=== PATIENT | male | born 1985 | race Caucasian/White ===

== ENCOUNTER 2018-02-08 14:34 | Emergency (ER) | payer SELFPAY ==
[2018-02-08] MEDS ORDERED: KETOROLAC 30 MG/ML VIAL (J1885) IV (15:30)
[2018-02-08] MEDS ORDERED: KETOROLAC 30 MG/ML VIAL (J1885) As Ordered (15:58)
[2018-02-08] MEDS: KETOROLAC 60 MG/2 ML VIAL (J1885) IM (16:07)
[2018-02-08] MEDS: PERCOCET 5MG/325MG TAB PO (16:07)
[2018-02-08 16:35] LABS: AMORPHOUS SEDIMENT MODERATE (NEGATIVE); APPEARANCE, URINE TURBID (CLEAR); BACTERIA, URINE AUTO NEGATIVE (NEGATIVE); BILIRUBIN, URINE AUTO NEGATIVE (NEGATIVE); BLOOD, URINE BLOOD NEGATIVE (NEGATIVE); COLOR, URINE YELLOW (YELLOW); GLUCOSE, URINE (UA) AUTO NEGATIVE (NEGATIVE); KETONE, URINE AUTO NEGATIVE (NEGATIVE); LEUKOCYTE ESTERASE, URINE AUTO NEGATIVE (NEGATIVE); NITRITE, URINE AUTO NEGATIVE (NEGATIVE); PROTEIN, URINE AUTO NEGATIVE (NEGATIVE); RBC, URINE AUTO 2 /HPF (0-3); SPECIFIC GRAVITY URINE AUTO 1.019 (1.002-1.035); SQUAMOUS EPITHELIAL CELL UR AU 0 /HPF (0-6); UROBILINOGEN, URINE AUTO 0.2 mg/dL (0.0-2.0); WBC, URINE AUTO 0 /HPF (0-3)
[2018-02-08 16:45] LABS: ANION GAP 5 MEQ/L (8-16); BLOOD UREA NITROGEN 20 MG/DL (7-18); CALCIUM LEVEL 8.8 MG/DL (8.5-10.1); CARBON DIOXIDE LEVEL 27 MEQ/L (21-32); CHLORIDE LEVEL 111 MEQ/L (98-107); CREATININE FOR GFR 0.91 MG/DL (0.70-1.30); GLOMERULAR FILTRATION RATE > 60.0 (>60); GLUCOSE, FASTING 104 MG/DL (70-100); POTASSIUM SERUM 3.8 MEQ/L (3.5-5.1); SODIUM LEVEL 143 MEQ/L (136-145)
== END 2018-02-08 17:50 | disposition home or self-care (01) ==
LOC: M ED 14:34
DX: M54.9 Dorsalgia, unspecified (principal); Z87.442 Personal history of urinary calculi
CPT/HCPCS: J1885

== ENCOUNTER 2025-07-17 17:51 | Emergency (ER) | payer SELFPAY ==
[~2025-07-17] VITALS: Ht 182.9 cm; Wt 113.4 kg
[~2025-07-17 17:51] MED LIST: CYCL-707 PO; NAPR-837 PO
[2025-07-17] MEDS: ONDANSETRON 4MG 2ML VIAL IV ONE (18:47)
[2025-07-17] MEDS: MORPHINE 2 MG/ML 1 ML VIAL IV PRN (18:51)
[2025-07-17 19:06] LABS: BASO # 0.1 10^3/uL (0.0-0.2); BASO % 0.4 % (0.0-1.0); EOS # 0.0 10^3/uL (0.0-0.5); EOS % 0.1 % (0.0-3.0); LYMPH # 1.2 10^3/uL (1.5-5.0); LYMPH % 5.6 % (24.0-44.0); MONO # 1.1 10^3/uL (0.0-0.8); MONO % 5.1 % (2.0-8.0); NEUTROPHILS # 19.2 10^3/uL (1.5-8.5); NEUTROPHILS % 88.2 % (36.0-66.0); PLATELET COUNT, AUTOMATED 309 10^3/uL (150-450)
[2025-07-17 19:25] LABS: ALT/SGPT 21 U/L (7.0-40); AST/SGOT 26 U/L (<34); CALCIUM LEVEL 10.2 MG/DL (8.5-10.1); CARBON DIOXIDE LEVEL 26 MMOL/L (20-31); CHLORIDE LEVEL 104 MMOL/L (98-107); CREATININE FOR GFR 1.04 MG/DL (0.70-1.30); GLOMERULAR FILTRATION RATE > 90.0 (>60); POTASSIUM SERUM 4.0 MMOL/L (3.5-5.1); SODIUM LEVEL 142 MMOL/L (136-145)
[2025-07-17] MEDS ORDERED: MORPHINE 4 MG/ML 1 ML VIAL IV PRN (19:45)
[2025-07-17] MEDS ORDERED: TAMS-18 PO (20:43)
[2025-07-17] MEDS ORDERED: HYDR-3713 PO (20:43)
[2025-07-17 21:04] LABS: KETONE, URINE AUTO RFX TRACE mg/dL (NEGATIVE); LEUKOCYTE ESTERASE UR AUTO RFX NEGATIVE (NEGATIVE); MUCUS, URINE RFX MODERATE (NEGATIVE); NITRITE, URINE AUTO RFX NEGATIVE (NEGATIVE); RBC, URINE AUTO RFX 29 /HPF (0-3); SQUAM EPITHELIAL CELL UR AURFX 1 /HPF (0-6); WBC, URINE AUTO RFX 5 /HPF (0-3)
[2025-07-17 21:17] VITALS: TEMP 98.2; O2SAT 95
[2025-07-17] MEDS ORDERED: CIPR-249 PO (21:43)
[2025-07-17] MEDS ORDERED: ONDA-282 PO (21:44)
[2025-07-17] MEDS: CIPROFLOXACIN 500 MG TABLET PO ONE (22:00)
[2025-07-17] MEDS: MORPHINE 4 MG/ML 1 ML VIAL IV ONE (22:01)
[2025-07-17] MEDS: NORCO 5/325MG TABLET (HOME DOSE PACK) PO ONE (22:03)
[2025-07-17] MEDS: TAMSULOSIN 0.4 MG CAP PO ONE (22:03)
[2025-07-17 22:10] VITALS: BP 140/102
== END 2025-07-17 22:15 | disposition home or self-care (01) ==
LOC: M ED 17:51
DX: N20.0 Calculus of kidney (principal); Z87.442 Personal history of urinary calculi; F17.200 Nicotine dependence, unspecified, uncomplicated; F12.10 Cannabis abuse, uncomplicated
CPT/HCPCS: 74176; 80047; 80053; 81001; 83605; 83690; 85025; 96374; 96375; 96376; 99284; J2405